=== PATIENT | male | born 1955 | race Caucasian/White ===

== ENCOUNTER 2017-07-31 23:49 | Emergency (ER) | payer OTHER, SELFPAY ==
[2017-08-01 00:22] LABS: BASO % 0.2 % (0-6); EOS % 2.9 % (0-6); GRAN % 60.4 % (47-80); HEMATOCRIT 42.6 % (42.0-52.0); HEMOGLOBIN 14.2 gm/dl (14.0-18.0); LYMPH % 26.7 % (16-45); MEAN CELL VOLUME 90.3 fl (81-97); MEAN CORPUSCULAR HEMOGLOBIN 30.1 pg (27-33); MEAN CORPUSCULAR HGB CONC 33.3 g/dl (32-36); MEAN PLATELET VOLUME 11.3 fl (7.4-10.4); MONO % 9.8 % (0-9); PLATELET COUNT 211 K/uL (130-400); RED BLOOD COUNT 4.72 M/uL (4.40-5.70); RED CELL DISTRIBUTION WIDTH 14.9 % (11.5-14.5); WHITE BLOOD COUNT W/O DIFF 9.6 K/uL (4.2-12.2)
[2017-08-01 00:30] LABS: ANION GAP 12.2 (7-16); BLOOD UREA NITROGEN 20 mg/dL (9-20); CARBON DIOXIDE 28.8 mmol/L (22-30); CREATINE PHOSPHOKINASE 38 U/L (55-170); EST GLOMERULAR FILTRATION RATE > 60 ml/min; GLUCOSE,RANDOM 105 mg/dL (70-110)
[2017-08-01 00:43] LABS: CKMB 0.8 ug/L (0-6)
[2017-08-01 00:45] LABS: TROPONIN I < 0.012 ng/mL (0.00-0.034)
[2017-08-01 01:01] LABS: THYROID STIMULATING HORMONE 1.96 uIU/ml (0.465-4.68)
[2017-08-01] MEDS ORDERED: LORAZEPAM 2 MG/ML VIAL IV ONE (02:03)
--- NOTE | 2017-08-01 02:11 | Emergency Department Record ---
History of Present Illness - General Chief Complaint: Arrythmia/Palpitations Stated Complaint: "HEARTS NOT FEELING RIGHT" Time Seen by Provider: 08/01/17 00:10 Source: Patient Mode of Arrival: EMS Limitations: No limitations - History of Present Illness Initial Comments: pt has been feeling palpitations since 1600. they have been constant. he denies cp. he says he gets an occasional pinching feeling. he thought he also has had a constant rapid heartrate since 1600 as well. no other symptoms MD Complaint: Palpitations, Rapid heart beat Onset/Timin -: Hour(s) Context: Occurred during exertion, Occurred during rest Arrythmia History: Other Associated Symptoms: Nausea/vomiting - Related Data Previous Rx's Medication Instructions Recorded Polyethylene Glycol 3350 [Miralax] 1 packet PO DAILY #30 packet 03/04/16 Allergies Allergy/AdvReac Type Severity Reaction Status Date / Time No Known Drug Allergies Allergy Verified 12/09/15 13:29 Travel Screening - Travel/Exposure Within Last 30 Days Have you traveled within the last 30 days?: No - Travel Symptoms Symptom Screening: None Review of Systems Reviewed: No additional complaints except as noted below Constitutional: Reports: As per HPI. Denies: Chills, Fever, Malaise, Night sweats, Weakness, Weight change Eyes: Reports: As per HPI. Denies: Eye discharge, Eye pain, Photophobia, Vision change ENT: Reports: As per HPI. Denies: Congestion, Dental pain, Ear pain, Epistaxis , Hearing loss, Throat pain Respiratory: Reports: As per HPI. Denies: Cough, Dyspnea, Hemoptysis, Stridor, Wheezes Cardiovascular: Reports: As per HPI. Denies: Arrhythmia, Chest pain, Dyspnea on exertion, Edema, Murmurs, Orthopnea, Palpitations, Paroxysmal nocturnal dyspnea, Rheumatic Fever, Syncope Endocrine: Reports: As per HPI. Denies: Fatigue, Heat or cold intolerance, Polydipsia, Polyuria Gastrointestinal: Reports: As per HPI. Denies: Abdominal pain, Constipation, Diarrhea, Hematemesis, Hematochezia, Melena, Nausea, Vomiting Genitourinary: Reports: As per HPI. Denies: Dysuria, Frequency, Hematuria, Incontinence, Retention, Testicular pain, Testicular mass, Urgency Musculoskeletal: Reports: As per HPI. Denies: Arthralgia, Back pain, Gout, Joint swelling, Myalgia, Neck pain Skin: Reports: As per HPI. Denies: Bruising, Change in color, Change in hair/ nails, Lesions, Pruritus, Rash Neurological: Reports: As per HPI. Denies: Abnormal gait, Confusion, Headache, Numbness, Paresthesias, Seizure, Tingling, Tremors, Vertigo, Weakness Psychiatric: Reports: As per HPI. Denies: Anxiety, Auditory hallucinations, Depression, Homicidal thoughts, Suicidal thoughts, Visual hallucinations Hematological/Lymphatic: Reports: As per HPI. Denies: Anemia, Blood Clots, Easy bleeding, Easy bruising, Swollen glands Past Medical History - SOCIAL HISTORY Smoking Status: Light tobacco smoker (<10/day) Drug Use: Occasional Drug Use Detail:: Marijuana - RESPIRATORY Hx Respiratory Disorders: No - CARDIOVASCULAR Hx Cardio Disorders: Yes Hx CHF: Yes (2010) Hx Heart Attack: Yes (10/2011) Hx Hypertension: Yes Hx Vascular Disease: Yes (CAD) Hx Coronary Stent: Yes (LAD) Comment:: hypercholesteremia, ECHO 12/2015 = 35% EF - NEURO Hx Neuro Disorders: Yes Hx Neuropathy: Yes (bilat hands comes/goes) - GI Hx GI Disorders: Yes Hx Abdominal Pain: Yes (12/2015) Hx Obstructive Bowel: Yes (12/2015) Hx Wt Loss/Wt Gain: Yes (loss 50 lbs/5yrs) - Hx Genitourinary Disorders: Yes Hx Prostate Problems: Yes (BPH) - ENDOCRINE Hx Endocrine Disorders: No - MUSCULOSKELETAL Hx Musculoskeletal Disorders: Yes Hx Back Injury: Yes (1984-C1 fx) Comment:: polyarthralgia - PSYCH Hx Psych Problems: Yes Hx Anxiety: Yes - HEMATOLOGY/ONCOLOGY Hx Blood Transfusions: Yes (w/acident) Family Medical History Any Significant Family History?: Yes Hx Cancer: Mother, Brother/Sister *Cancer Comment: uterine, ?colon sisters Hx Heart Disease: Father Physical Exam - General General Appearance: Alert, Oriented x3, Cooperative, Mild distress - Head Head exam: Normal inspection - Eye Eye exam: Normal appearance, PERRL, EOMI Pupils: Normal accommodation - ENT ENT exam: Normal exam, Mucous membranes moist, Normal external ear exam, Normal orophraynx, TM's normal bilaterally Ear exam: Normal external inspection. negative: External canal tenderness Nasal Exam: Normal inspection. negative: Discharge, Sinus tenderness Mouth exam: Normal external inspection, Tongue normal Teeth exam: Normal inspection. negative: Dental caries Throat exam: Normal inspection. negative: Tonsillar erythema, Tonsillar exudate - Neck Neck exam: Normal inspection, Full ROM. negative: Tenderness - Respiratory Respiratory exam: Normal lung sounds bilaterally. negative: Respiratory distress - Cardiovascular Cardiovascular Exam: Regular rate, Normal rhythm, Normal heart sounds - GI/Abdominal GI/Abdominal exam: Soft, Normal bowel sounds. negative: Tenderness - Rectal Rectal exam: Deferred - exam: Deferred - Extremities Extremities exam: Normal inspection, Full ROM, Normal capillary refill. negative: Tenderness - Back Back exam: Reports: Normal inspection, Full ROM. Denies: Muscle spasm, Rash noted, Tenderness - Neurological Neurological exam: Alert, CN II-XII intact, Normal gait, Oriented X3 - Psychiatric Psychiatric exam: Normal affect, Normal mood - Skin Skin exam: Dry, Intact, Normal color, Warm Course Vital Signs 08/01/17 08/01/17 00:01 00:53 Temperature 99.2 F Pulse Rate [ 68 Electrical Estimator ] Pulse Rate [ 83 Pulse Ox Probe] Respiratory 12 12 Rate Blood Pressure 146/95 144/98 [Right Arm] Pulse Ox 100 98 - Reevaluation(s) Reevaluation #1: 08/01/17 02:11 pt has done well his entire stay. there has been no tachycardia and no irreg beats seen though pt has continued to feel like his heart was racing and having irreg beats. Reevaluation #2: 08/01/17 06:15 pt continued to do well Reevaluation #3: 08/01/17 06:16 pt recently had 2 wk event monitor at the co. pt has not learned of any results Medical Decision Making - Management Options MDM Management: Additional Work-up Planned (e.g. ADM/Transfer/OP Study) - Data Complexity MDM Data: Labs Ordered and/or Reviewed, X-Ray Ordered and/or Reviewed, EKG Ordered and/or Reviewed - Lab Data Result diagrams: 07/31/17 23:50 07/31/17 23:50 Lab Results 07/31/17 07/31/17 08/01/17 Range/Units 23:50 23:50 00:27 WBC 9.6 (4.2-12.2) K/uL RBC 4.72 (4.40-5.70) M/uL Hgb 14.2 (14.0-18.0) gm/dl Hct 42.6 (42.0-52.0) % MCV 90.3 (81-97) fl MCH 30.1 (27-33) pg MCHC 33.3 (32-36) g/dl RDW 14.9 H (11.5-14.5) % Plt Count 211 (130-400) K/uL MPV 11.3 H (7.4-10.4) fl Gran % 60.4 (47-80) % Lymphocytes % 26.7 (16-45) % Monocytes % 9.8 H (0-9) % Eosinophils % 2.9 (0-6) % Basophils % 0.2 (0-6) % D-Dimer 0.21 (0-0.59) mg/L FEU Sodium 140 (136-145) mmol/L Potassium 3.9 (3.5-5.1) mmol/L Chloride 99 (98-107) mmol/L Carbon Dioxide 28.8 (22-30) mmol/L Anion Gap 12.2 (7-16) BUN 20 (9-20) mg/dL Creatinine 1.0 (0.66-1.25) mg/dL Estimated GFR > 60 ml/min Random Glucose 105 (70-110) mg/dL Calcium 9.1 (8.5-10.1) mg/dL Creatine Kinase 38 L (55-170) U/L CK-MB (CK-2) 0.8 (0-6) ug/L Troponin I < 0.012 (0.00-0.034) ng/mL NT-Pro-B Natriuret Pep 1330.00 H (<125) pg/mL TSH 1.96 (0.465-4.68) uIU/ml - EKG Data -: EKG Interpreted by Fl EKG: Unchanged From Previous - Radiology Data Radiology results: Image reviewed -: Radiology Exam Interpreted by Myself Disposition Disposition: Discharge Clinical Impression: Palpitations Disposition: Home, Self-Care Condition: (1) Good Instructions: Heart Palpitations (ED) Additional Instructions: follow up with family doctor. return sooner if worse. Forms: Patient Portal Access Quality - Quality Measures Quality Measures: N/A - Blood Pressure Screening Does Patient Have Any of the Following: No Blood Pressure Classification: Normal BP Reading Systolic Measurement: 102 Diastolic Measurement: 64 Screening for High Blood Pressure: < Normal BP, F/U Not Required > [G7209]
--- NOTE | 2017-08-01 14:15 | RADIOLOGY REPORT ---
EXAM: CHEST, TWO VIEWS HISTORY: PALPITATIONS BEGINNING TODAY. NAUSEA. TECHNIQUE: PA and lateral views of the chest were obtained. Comparison: Two view chest 12/09/15. FINDINGS: The previously seen bilateral pleural effusions have resolved. There is now minimal blunting of the right lateral and left posterior costophrenic angles. The heart size is at about the upper limits of normal. No definite acute infiltrate is seen. No pneumothorax evident. IMPRESSION: 1. REGRESSION OF PREVIOUSLY SEEN BILATERAL PLEURAL EFFUSIONS WITH MINOR RESIDUAL BLUNTING OF SOME OF THE COSTOPHRENIC ANGLES TODAY. 2. THE HEART SIZE IS AT ABOUT THE UPPER LIMITS OF NORMAL. 3. NO DEFINITE ACUTE INFILTRATE SEEN. JOB NUMBER: [id number] MTDD
== END 2017-08-01 08:57 | disposition home or self-care (01) ==
LOC: ER 23:49
DX: R00.2 Palpitations (principal); R11.12 Projectile vomiting; I10 Essential (primary) hypertension; I25.2 Old myocardial infarction; I50.9 Heart failure, unspecified; F17.210 Nicotine dependence, cigarettes, uncomplicated
CPT/HCPCS: 99284 ×2; 96374; 82550; 85025; 82553; 84484; 80048; 84443; 85379; 83880; 71020; 93005; 93010; J2060

== ENCOUNTER 2017-09-30 08:18 | Emergency (ER) | payer OTHER, SELFPAY ==
--- NOTE | 2017-09-30 08:50 | Emergency Department Record ---
History of Present Illness - General Chief Complaint: Dizziness Stated Complaint: SPASMS Time Seen by Provider: 09/30/17 08:44 Source: Patient Mode of Arrival: Ambulatory Limitations: No limitations - History of Present Illness Initial Comments: The patient is here due to a one day hx of dizziness and weakness off and on. He mainly feels very anxious and is feeling spasms from his waist up for the last 24 hours. He denies any Cp, SOB, NITO, sweating, cough or fevers. The patient has had similar issues in the past but no diagnosis was given. MD Complaint: Dizziness Onset/Timin -: Days(s) Timing: Unsure Description: Lightheadedness History of Same: Yes (but can't give specifics- he thinks so) History of Trauma: No Associated Symptoms: Weakness - [place] Coma Scale Eye Response: (4) Open spontaneously Motor Response: (6) Obeys commands Verbal Response: (5) Oriented [place] Total: 15 - Related Data Previous Rx's Medication Instructions Recorded Polyethylene Glycol 3350 [Miralax] 1 packet PO DAILY #30 packet 03/04/16 Allergies Allergy/AdvReac Type Severity Reaction Status Date / Time No Known Drug Allergies Allergy Verified 12/09/15 13:29 Travel Screening - Travel/Exposure Within Last 30 Days Have you traveled within the last 30 days?: No - Travel/Exposure Within Last Year Have you traveled outside the [place] in the last year?: No - Additonal Travel Details Have you been exposed to anyone with a communicable illness?: No - Travel Symptoms Symptom Screening: None Review of Systems Constitutional: Denies: Chills, Fever Eyes: Denies: Eye discharge ENT: Denies: Congestion Respiratory: Denies: Cough, Dyspnea Past Medical History - SOCIAL HISTORY Smoking Status: Light tobacco smoker (<10/day) Alcohol Use: Occasional, Heavy Alcohol Use Comment: when he gets paid Drug Use: Occasional Drug Use Detail:: Marijuana - RESPIRATORY Hx Respiratory Disorders: No - CARDIOVASCULAR Hx Cardio Disorders: Yes Hx CHF: Yes (2010) Hx Heart Attack: Yes (10/2011) Hx Hypertension: Yes Hx Vascular Disease: Yes (CAD) Hx Coronary Stent: Yes (LAD) Comment:: hypercholesteremia, ECHO 12/2015 = 35% EF - NEURO Hx Neuro Disorders: Yes Hx Neuropathy: Yes (bilat hands comes/goes) - GI Hx GI Disorders: Yes Hx Abdominal Pain: Yes (12/2015) Hx Obstructive Bowel: Yes (12/2015) Hx Wt Loss/Wt Gain: Yes (loss 50 lbs/5yrs) - Hx Genitourinary Disorders: Yes Hx Prostate Problems: Yes (BPH) - ENDOCRINE Hx Endocrine Disorders: No - MUSCULOSKELETAL Hx Musculoskeletal Disorders: Yes Hx Back Injury: Yes (1984-C1 fx) Comment:: polyarthralgia - PSYCH Hx Psych Problems: Yes Hx Anxiety: Yes - HEMATOLOGY/ONCOLOGY Hx Hematology/Oncology Disorders: Yes Hx Blood Transfusions: Yes (w/acident) Family Medical History Any Significant Family History?: No Hx Cancer: Mother, Brother/Sister *Cancer Comment: uterine, ?colon sisters Hx Heart Disease: Father Physical Exam - General General Appearance: Alert, Oriented x3, Cooperative, No acute distress - Head Head exam: Atraumatic, Normocephalic, Normal inspection - Eye Eye exam: Normal appearance, PERRL - ENT Throat exam: Normal inspection. negative: Tonsillar erythema, Tonsillar exudate - Neck Neck exam: Normal inspection, Full ROM. negative: Tenderness - Respiratory Respiratory exam: Normal lung sounds bilaterally. negative: Respiratory distress - Cardiovascular Cardiovascular Exam: Regular rate, Normal rhythm, Normal heart sounds - GI/Abdominal GI/Abdominal exam: Soft, Normal bowel sounds. negative: Tenderness - Extremities Extremities exam: Normal inspection, Full ROM, Normal capillary refill. negative: Tenderness - Neurological Neurological exam: Alert, Normal gait. negative: Abnormal gait, Motor sensory deficit - Psychiatric Psychiatric exam: Anxious Course Vital Signs 09/30/17 08:32 Temperature 97.9 F Pulse Rate 102 H Respiratory 20 Rate Blood Pressure 137/98 Pulse Ox 100 - Reevaluation(s) Reevaluation #1: The patient is doing very well at this time. He is resting comfortably with a normal HR and RA biox. I did discuss with the patient the abnormal TSH result and the need for F/U. 09/30/17 09:38 Medical Decision Making - Data Complexity MDM Data: Labs Ordered and/or Reviewed, X-Ray Ordered and/or Reviewed, EKG Ordered and/or Reviewed - Lab Data Result diagrams: 09/30/17 08:55 09/30/17 08:55 - EKG Data -: EKG Interpreted by Me EKG: No Acute Changes, Unchanged From Previous - Radiology Data Radiology results: Report reviewed (CXR: Neg.) Disposition Disposition: Discharge Clinical Impression: Anxiety Disposition: Home, Self-Care Condition: (1) Good Instructions: Generalized Anxiety Disorder (ED) Additional Instructions: Please take the Ativan as directed. Please see your PCP this week for recheck of the anxiety and thyroid condition. Return to the ER for any problems or pain. Forms: Patient Portal Access Time of Disposition: 09:41 Quality - Quality Measures Quality Measures: N/A - Blood Pressure Screening View Details: Yes Does Patient Have Any of the Following: No Blood Pressure Classification: Pre-Hypertensive BP Reading Systolic Measurement: 122 Diastolic Measurement: 86 Screening for High Blood Pressure: < Pre-Hypertensive BP, F/U Documented > [ G8950] Pre-Hypertensive Follow-up Interventions: Referral to alternative/primary care provider.
[2017-09-30 09:01] LABS: BASO % 0.2 % (0-6); EOS % 1.8 % (0-6); GRAN % 66.2 % (47-80); HEMATOCRIT 46.5 % (42.0-52.0); HEMOGLOBIN 15.8 gm/dl (14.0-18.0); LYMPH % 26.2 % (16-45); MEAN CELL VOLUME 88.9 fl (81-97); MEAN CORPUSCULAR HEMOGLOBIN 30.2 pg (27-33); MEAN PLATELET VOLUME 10.4 fl (7.4-10.4); MONO % 5.6 % (0-9); PLATELET COUNT 253 K/uL (130-400); RED BLOOD COUNT 5.23 M/uL (4.40-5.70); RED CELL DISTRIBUTION WIDTH 15.1 % (11.5-14.5); WHITE BLOOD COUNT W/O DIFF 8.7 K/uL (4.2-12.2)
[2017-09-30 09:32] LABS: ALB/GLOB RATIO 1.4 (1.1-1.8); ALBUMIN 4.9 g/dL (4.0-5.0); ALKALINE PHOSPHATASE 47 U/L (40-129); ALT/SGPT 30 U/L (<41); AST/SGOT 23 U/L (10.0-50.0); BLOOD UREA NITROGEN 16 mg/dL (8-23); CKMB 1.8 ng/mL (<6.73); CREATINE PHOSPHOKINASE 46 U/L (39-308); CREATININE 0.8 mg/dL (0.7-1.2); EST GLOMERULAR FILTRATION RATE > 60 mL/min; GLUCOSE,RANDOM 109 mg/dL (74-109); THYROID STIMULATING HORMONE 0.21 uIU/mL (0.270-4.20); TOTAL PROTEIN 8.4 g/dL (6.6-8.7)
[2017-09-30] MEDS: LORAZEPAM 0.5 MG TABLET PO ONE (10:00)
--- NOTE | 2017-09-30 13:25 | RADIOLOGY REPORT ---
EXAM: CHEST 2 VIEWS HISTORY: LIGHTHEADEDNESS. COMPARISON: 08/01/17. TECHNIQUE: Two views. FINDINGS: Heart is not enlarged. Lungs and pleural spaces are clear. IMPRESSION: NO ACUTE CARDIOPULMONARY ABNORMALITY. JOB NUMBER: [id number] MTDD
== END 2017-09-30 10:07 | disposition home or self-care (01) ==
LOC: ER 08:18
DX: F41.9 Anxiety disorder, unspecified (principal); R42 Dizziness and giddiness; R25.2 Cramp and spasm; R94.6 Abnormal results of thyroid function studies; I50.9 Heart failure, unspecified; I10 Essential (primary) hypertension; I25.2 Old myocardial infarction; F17.210 Nicotine dependence, cigarettes, uncomplicated
CPT/HCPCS: 71020; 80053; 82550; 82553; 84443; 84484; 85025; 93005; 93010; 99284